=== PATIENT | female | born 1955 | race Caucasian/White ===

== ENCOUNTER → 2017-09-07 | Outpatient (CLI) | payer BC ==
[~2017-09-07] MED LIST: ALBU8.5H IH; ASPI81TA94 PO; CALC-634 PO; CALCIUM; EZET1TAB81 PO; FLU45SYR17 IM; FLU45SYR25 IM ONLY; FLU60SYR30 IM ONLY; LOSA-51 PO; METF-410 PO; METF10002 PO; METXR500 PO; MULTIPLE VITAMIN PO; NYST15CR32 TP; OLME1TAB49 PO; OMEG-11 PO; PRED20TA6 PO; ROSU5TAB18 PO; SERT-184 PO; SIMV-54 PO; VITAMIN D; ZOST19404 IM; ZOST19404 SQ; [UNRECOGNIZED DRUG - CODE] MC
[2017-09-07 10:20] LABS: PLATELET COUNT, AUTOMATED 204 K/uL (150-450)
[2017-09-07 10:40] LABS: LDL CHOLESTEROL 186 mg/dl
== END ==
LOC: LAB 10:05
PROVIDERS: ATTEND Nurse Practitioner Family
DX: I10 Essential (primary) hypertension (principal); E11.9 Type 2 diabetes mellitus without complications; E78.5 Hyperlipidemia, unspecified
CPT/HCPCS: 36415; 82040; 82247; 82310; 82374; 82435; 82465; 82565; 82947; 83036; 83718; 84075; 84132; 84155; 84295; 84450; 84460; 84478; 84520; 85025

== ENCOUNTER 2017-09-29 15:41 | Emergency (ER) | payer BC ==
[2017-09-29] MEDS ORDERED: METF-410 PO (15:57)
[2017-09-29] MEDS ORDERED: IOPAMIDOL 76% 75 ML INFUS BTL 75 ML ONE (16:58)
[2017-09-29] MEDS ORDERED: NS 0.9% 150 ML BAG 150 ML ONE (16:58)
[2017-09-29] MEDS ORDERED: KETOROLAC 30 MG/ML VIAL IVP ONE (17:35)
[2017-09-29] MEDS ORDERED: METOCLOPRAMIDE 10 MG/2 ML SDV IVP ONE (17:35)
--- NOTE | 2017-09-29 17:58 | RADIOLOGY IMAGING REPORT ---
FACILITY[place] [facility] [place]IENT NAME: Mariam Moreland : 1955 MR: [id number] V: [id number] EXAM DATE: [id number] ORDERING PHYSICIAN: MALORIE PAREDES TECHNOLOGIST: Location: [facility] - [place] Patient: Mariam Moreland : 1955 Visit/Account:[id number] Date of Sevice: 09/29/2017 CT angiogram chest with contrast Indication: Shortness of breath. Elevated d-dimer. Comparison: None available. Technique: Axial CT images are obtained through the chest after administration of 75 mL Isovue 370 IV contrast. Reformatted coronal and sagittal images were reviewed as well as coronal MIP images. One of the following dose optimization techniques was utilized in the performance of this exam: auto mated exposure control; adjustment of the mA and/or kV according to the patient's size; or use of an iterative reconstruction technique. Specific details can be referenced in the facility's radiology C T exam operational policy. FINDINGS: No evidence of filling defect within the pulmonary vasculature to suggest pulmonary embolus. Heart is upper limits normal for size. No pericardial effusion. The aorta shows no aneurysm or dissec tion. The mediastinum and hilar regions show no enlarged lymph nodes or abnormal density. Lungs show mild bibasilar atelectasis. No consolidation, pleural effusion or pneumothorax. No discret e nodule or focal interstitial opacity. Airways are clear. Bony structures show no acute fracture or discrete lesions. Chest wall shows no enlarged axillary lym ph nodes or masses. Limited views of the upper abdomen are unremarkable. IMPRESSION: 1. No evidence of pulmonary embolus. 2. Mild bibasilar atelectasis. No focal infiltrate. Report Dictated By: Luis Antonio Cali at 09/29/2017 5:47 PM Report E-Signed By: Luis Antonio Cali at 09/29/2017 5:54 PM WSN:[id number]
[2017-09-29 18:30] VITALS: BP 101/65
--- NOTE | 2017-09-29 19:15 | ER Report ---
History and Physical Time Seen By MD: 16:00 Hx. of Stated Complaint: pt has had low sats, feve rnon productive cough . SEnt from clinic, after having an elevated d dimer. HPI/ROS This is a 61-year-old female who was sent to the emergency department from the outpatient clinic for a CTA of the chest to evaluate for PE. The patient states she has had a nonproductive cough and subjective fever chills for the past week. She is on home oxygen that she only wears at night. She denies any chest pain. So states that she has a headache from coughing. She took a flight from [place] to [place] and back approximately one month ago. No other PE risk factors. Remainder of the 14 system rev: Yes Allergies: Coded Allergies: codeine (Verified Allergy, Mild, N&V, 09/29/17) propoxyphene (Unverified Allergy, Unknown, 09/29/17) Uncoded Allergies: diphtheria Toxin Preparations (Allergy, Unknown, 01/12/14) Home Meds Active Scripts Rosuvastatin Calcium (Rosuvastatin Calcium) 5 Mg Tablet, 0.5 TAB PO QHS, #45 TAB 0 Refills Prov:LAN LEVINE APRN-C 09/10/17 Sertraline Hcl (SERTRALINE HCL) 50 Mg Tablet, 1 TAB PO QDAY, #90 TAB 1 Refill Prov:LAN LEVINE APRN-C 04/06/17 Losartan/Hydrochlorothiazide (LOSARTAN-HCTZ 50-12.5 MG TAB) 1 Each Tablet, 1 EACH PO QDAY, #90 TAB 2 Refills Prov:LAN LEVINE APRN-C 07/01/16 NYSTATIN 632038 UNT/ML Topical Cream (NYSTATIN 624404 UNT/ML Topical Cream) 15 Gm Cream..g., 1 MEREDITH TP TID, #60 GM 2 Refills Prov:LAN LEVINE APRN-C 08/20/15 Reported Medications Metformin Hcl (METFORMIN HCL) 500 Mg Tablet, 1 TAB PO QDAY, TAB 09/29/17 Calcium Carbonate/Vitamin D3 (CALCIUM 600 + VIT D 400 TABLET) 1 Each Tablet, 1 EACH PO 08/18/14 [place]-3 Fatty Acids/Fish Oil (FISH OIL 1,000 MG CAPSULE) 1 Each Capsule, 1 EACH PO, CAPSULE 01/12/14 [Multiple Vitamin] No Conflict Check, PO QDAY 01/24/08 Discontinued Reported Medications Aspirin (ASPIRIN) 81 Mg Tab.chew, 81 MG PO QDAY, TAB.CHEW TAKE 1 TABLET BY MOUTH EVERY DAY 01/12/14 Discontinued Scripts Blood Sugar Diagnostic (ONE TOUCH ULTRA TEST STRIPS) 1 Each Strip, 1 EACH MC DAILY, #100 STRIP 3 Refills Prov:LAN LEVINE APRN RN [facility]-C 09/22/17 Metformin Hcl (METFORMIN HCL) 500 Mg Tablet, 1-2 TAB PO BID, #360 TAB 3 Refills 1 tab every morning and 2 tabs every evening Prov:LAN LEVINE APRN RN [facility]ARY-C 02/06/17 Zoster Vaccine Live/Pf (Zostavax Vial) 19,400 Unit/0.65 Ml Vial, 0.65 ML IM ONCE , #1 VIAL 0 Refills Prov:LAN LEVINE APRNP-C 11/06/16 Blood-Glucose Meter (ONE TOUCH ULTRAMINI) 1 Each Kit, 1 EACH MC, #1 Use to check blood sugars once daily Prov:LAN LEVINE APRN RN [facility]-C 09/17/15 Reviewed Nurses Notes: Yes Old Medical Records Reviewed: Yes Smoking Status: Never Smoker Hx Substance Use Disorder: No Hx Alcohol Use: Yes (rare) Constitutional Vital Sign - Last 24 Hours 09/29/17 09/29/17 09/29/17 09/29/17 15:46 15:51 16:04 16:11 Temp 100.1 Pulse 77 72 Resp 20 31 B/P (MAP) 135/83 135/83 (100) Pulse Ox 92 93 O2 Delivery Room Air O2 Flow Rate 2.0 09/29/17 16:41 Resp 21 Pulse Ox 91 Physical Exam General Appearance: The patient is alert, has no immediate need for airway protection and no current signs of toxicity. Eyes: Pupils equal and round no injection. Respiratory: Chest is non tender, lungs are clear to auscultation. Cardiac: regular rate and rhythm Gastrointestinal: Abdomen is soft and non tender, no masses, bowel sounds normal. Skin: No rashes or lesions. DIFFERENTIAL DIAGNOSIS: After history and physical exam differential diagnosis was considered for shortness of breath including but not limited to pulmonary infectious process, COPD, asthma, pulmonary embolus and congestive heart failure. Medical Decision Making EKG/Imaging Imaging Results: CTA scan of the chest was obtained. The results of the study are no PE, no infiltrate, no pulmonary edema. The study was read by the radiologist. I viewed the images myself on the PACS system. ED Course/Re-evaluation ED Course This is a 61-year-old female with a cough and subjective fevers for the past week who was sent to the emergency department from the outpatient clinic for a CTA of the chest to rule out a PE. She has no PE, infiltrate, or pulmonary edema on her CT scan of the chest. She is hypoxic into the mid 80s with ambulation however. I think she is suffering from a viral bronchitis. She already has home oxygen that she wears at night so I counseled her to also with her oxygen at 2 L during the day until her symptoms are resolved. I counseled her to call the outpatient clinic tomorrow and schedule a follow-up appointment Decision to Disposition Date: Sep 29, 2017 Decision to Disposition Time: 19:12 Depart Departure Latest Vital Signs Vital Signs Date Time Temp Pulse Resp B/P (MAP) Pulse Ox O2 Delivery O2 Flow Rate FiO2 09/29/17 16:41 21 91 09/29/17 16:11 72 09/29/17 16:04 2.0 09/29/17 15:51 135/83 (100) 09/29/17 15:46 100.1 Room Air Impression: Primary Impression: Hypoxia Additional Impression: Viral upper respiratory illness Condition: Improved Disposition: HOME OR SELF-CARE Referrals: LAN LEVINE APRN RN [facility]-C (PCP) Patient Instructions: Upper Respiratory Infection (ED) Additional Instructions: Start using her oxygen during the day at 2 L nasal cannula until your symptoms are improved. Follow-up with Carlton [facility] tomorrow please Problem Qualifiers MALORIE PAREDES MD Sep 29, 2017 19:15
== END 2017-09-29 19:32 | disposition home or self-care (01) ==
LOC: ER 15:56
DX: R09.02 Hypoxemia (principal); J06.9 Acute upper respiratory infection, unspecified
CPT/HCPCS: 71275; 96374; 96375; 99284; J1885; J2765; Q9967

== ENCOUNTER → 2017-09-29 | Outpatient (CLI) | payer BC ==
[~2017-09-29] MED LIST changes: +BLOO-1318 MC
[2017-09-29 14:44] LABS: PLATELET COUNT, AUTOMATED 145 K/uL (150-450)
--- NOTE | 2017-09-29 15:11 | RADIOLOGY IMAGING REPORT ---
FACILITY: [facility] - [place] PATIENT NAME: Mariam Moreland : 1955 MR: [id number] V: [id number] EXAM DATE: ORDERING PHYSICIAN: JESSIE CHAPMAN TECHNOLOGIST: Location: [facility] - [place] Patient: Mariam Moreland : 1955 Visit/Account:[id number] Date of Sevice: 09/29/2017 2 VIEWS CHEST INDICATION: Shortness of breath for one month, worsening. COMPARISON: None available FINDINGS: Cardiomediastinal silhouette and pulmonary vessels within normal limits. There is no focal infiltrate or lobar consolidation. There is no pneumothorax or pleural effusion. No nodule. Upper abdomen is unremarkable. No acute bony abnormality. IMPRESSION: 1. No acute cardiopulmonary process. Report Dictated By: Luis Antonio Cali at 09/29/2017 3:05 PM Report E-Signed By: Luis Antonio Cali at 09/29/2017 3:07 PM WSN:[id number]
== END ==
LOC: LAB 14:00
PROVIDERS: ATTEND Nurse Practitioner Primary Care
DX: R06.02 Shortness of breath (principal); M54.5 Low back pain
CPT/HCPCS: 36415; 71046; 81001; 82040; 82247; 82310; 82374; 82435; 82565; 82947; 84075; 84132; 84155; 84295; 84450; 84460; 84520; 85025; 85379

== ENCOUNTER → 2017-09-30 | Outpatient (CLI) | payer BC | LOC: LAB 11:12 | PROVIDERS: ATTEND Nurse Practitioner Primary Care | DX: R09.02 Hypoxemia (principal) | CPT/HCPCS: 87631 ==

== ENCOUNTER → 2017-10-12 | Outpatient (CLI) | payer BC ==
--- NOTE | 2017-10-12 16:54 | RADIOLOGY IMAGING REPORT ---
FACILITY: [facility] - [place] PATIENT NAME: Mariam Moreland : 1955 MR: [id number] V: [id number] EXAM DATE: ORDERING PHYSICIAN: LAN LEVINE TECHNOLOGIST: Location: [facility] - [place] Patient: Mariam Moreland : 1955 Visit/Account:[id number] Date of Sevice: 10/12/2017 Exam type: CHEST PA AND LAT History: hypoxia - worsening Comparison: September 29, 2017. Findings: There is a small amount of platelike atelectasis in the lower lobes. There is no evidence of focal i nfiltrates, pleural effusions or pulmonary edema. No evidence of a pneumothorax or pneumomediastinum . Cardiac size is normal in size. There has been surgical resection of the distal right clavicle. IMPRESSION: 1. Small amount of platelike atelectasis is seen in the lung bases Report Dictated By: Deya Arboleda MD at 10/12/2017 4:49 PM Report E-Signed By: Deya Arboleda MD at 10/12/2017 4:50 PM WSN:[id number]
== END ==
LOC: RAD 16:12
PROVIDERS: ATTEND Nurse Practitioner Family
DX: R09.02 Hypoxemia (principal)
CPT/HCPCS: 71046

== ENCOUNTER → 2017-12-11 | Outpatient (CLI) | payer BC ==
[~2017-12-11] MED LIST changes: -METF-410 PO; +METF-411 PO; +OFLO5DRO45 OS
[2017-12-11 09:48] LABS: PLATELET COUNT, AUTOMATED 184 K/uL (150-450)
[2017-12-11 10:12] LABS: LDL CHOLESTEROL 104 mg/dl
== END ==
LOC: LAB 09:30
PROVIDERS: ATTEND Nurse Practitioner Family
DX: I10 Essential (primary) hypertension (principal); E78.5 Hyperlipidemia, unspecified; E11.9 Type 2 diabetes mellitus without complications; R94.5 Abnormal results of liver function studies
CPT/HCPCS: 36415; 82040; 82247; 82310; 82374; 82435; 82465; 82565; 82947; 83036; 83718; 84075; 84132; 84155; 84295; 84443; 84450; 84460; 84478; 84520; 85025

== ENCOUNTER → 2018-02-11 | Outpatient (CLI) | payer BC ==
[~2018-02-11] MED LIST changes: +PNEI IM; -ROSU5TAB18 PO; +ROSU5TAB3 PO
--- NOTE | 2018-02-12 11:46 | RADIOLOGY IMAGING REPORT ---
FACILITY: [facility] - [place] PATIENT NAME: OMAIRA HAN : [id number] MR: [id number] V: [id number] EXAM DATE: [id number] ORDERING PHYSICIAN: LAN LEVINE TECHNOLOGIST: Eliza Harper PROCEDURE:BILATERAL DIGITAL SCREENING MAMMOGRAM WITH CAD ASSISTED INTERPRETATION & 3D TOMOSYNTHESIS COMPARISON:Prior mammograms 11/13/16, 08/10/15. INDICATIONS:SCREENING FINDINGS: There is scattered fibroglandular tissue. No significant microcalcification, mass or architectural distortion. No change compared to prior. DIAGNOSTIC CATEGORY 1--NEGATIVE. RECOMMENDATIONS: ROUTINE MAMMOGRAM AND CLINICAL EVALUATION. IMPRESSION: BIRADS 1: Negative. Normal exam. Dictated by: Javier Peralta on 02/12/2018 at 9:50 Transcribed by: ROMAINE on 02/12/2018 at 10:01 Approved by: Javier Peralta on 02/12/2018 at 11:45 [facility]
== END ==
LOC: MAMO 02:00
PROVIDERS: ATTEND Nurse Practitioner Family
DX: Z12.31 Encounter for screening mammogram for malignant neoplasm of breast (principal)
CPT/HCPCS: 77063; 77067

== ENCOUNTER 2018-03-31 00:02 | Day surgery (SDC) | payer BC ==
[~2018-03-31] VITALS: Ht 154.9 cm; Wt 78.5 kg
[~2018-03-31 00:02] MED LIST changes: -METF-411 PO; +METF-450 PO
[2018-03-31 06:21] VITALS: BP 133/92
[2018-03-31] MEDS ORDERED: NORMOSOL R SOLN(*) 1000 ML BAG 1,000 ML IV PRN (06:30)
[2018-03-31] MEDS ORDERED: LIDOCAINE/SOD BICARB 8.4% SYR ID ONE (06:30)
[2018-03-31] MEDS ORDERED: PROPOFOL EMUL(*) 10MG/ML 20 ML 20 ML ONE ×2 (07:05→07:54)
[2018-03-31 08:14] VITALS: BP 104/61
--- NOTE | 2018-03-31 08:27 | Short(Outpt) Discharge Summary ---
Discharge Summary Reason for Hosp/Final Diag: (1) Colon cancer screening Status: Chronic Hospital Course & Plan: Colonoscopy with polypectomy x5, including large rectal polyp, completed without problems. Departure Discharge to: Home, Self Care Discharge Instructions Home Meds Active Scripts Sertraline Hcl (SERTRALINE HCL) 50 Mg Tablet, 1 TAB PO QDAY, #90 TAB 1 Refill Prov:LAN LEVINE APRNP-C 01/28/18 Metformin Hcl (METFORMIN HCL) 500 Mg Tablet, 1 TAB PO QDAY, #90 TAB 1 Refill Prov:LAN LEVINE APRNP-C 01/28/18 Losartan/Hydrochlorothiazide (LOSARTAN-HCTZ 50-12.5 MG TAB) 1 Each Tablet, 1 EACH PO QDAY, #90 TAB 0 Refills Prov:LAN LEVINE APRNP-C 01/05/18 Reported Medications Calcium Carbonate/Vitamin D3 (CALCIUM 600 + VIT D 400 TABLET) 1 Each Tablet, 1 EACH PO 08/18/14 [Multiple Vitamin] No Conflict Check, PO QDAY 01/24/08 Diet: Regular Activity: As Tolerated Special Instructions: Your colonoscopy was completed without problems and your prep was excellent (Good Job!!). I removed 4 small polyps and 1 large polyps from your colon and rectum and they were all sent to pathology. My office will call you in the next week or 2 and let you know what the polyps are but, in any case, because of the large polyp, I am going to recommend that your next colonoscopy be completed in no more than 1 year so I can be sure the polyp is not growing back. If everything looks good/normal at that time with no further polyps then you will need colonoscopies every 5 years thereafter. BEE DEL VALLE MD Mar 31, 2018 08:27
[2018-03-31 08:30] VITALS: BP 102/50
[2018-03-31 08:54] VITALS: BP 129/72
[2018-03-31 08:56] VITALS: BP 134/85
== END 2018-03-31 09:09 | disposition home or self-care (01) ==
LOC: OR 00:02
PROVIDERS: ATTEND Surgery
DX: Z12.11 Encounter for screening for malignant neoplasm of colon (principal); D12.5 Benign neoplasm of sigmoid colon; K63.5 Polyp of colon; E11.9 Type 2 diabetes mellitus without complications
CPT/HCPCS: 00811; 36416; 45385; 82948; 88305; J2704

== ENCOUNTER → 2018-05-14 | Outpatient (CLI) | payer BC ==
[2018-05-14 10:42] LABS: LDL CHOLESTEROL 115 mg/dl
== END ==
LOC: LAB 10:05
PROVIDERS: ATTEND Nurse Practitioner Family
DX: E78.5 Hyperlipidemia, unspecified (principal); E11.9 Type 2 diabetes mellitus without complications; R79.89 Other specified abnormal findings of blood chemistry; I10 Essential (primary) hypertension
CPT/HCPCS: 36415; 82040; 82247; 82310; 82374; 82435; 82465; 82565; 82947; 83036; 83718; 84075; 84132; 84155; 84295; 84450; 84460; 84478; 84520

== ENCOUNTER → 2018-09-28 | Outpatient (CLI) | payer BC ==
[2018-09-28 10:37] LABS: LDL CHOLESTEROL 177 mg/dl
== END ==
LOC: LAB 09:58
PROVIDERS: ATTEND Nurse Practitioner Family
DX: R79.89 Other specified abnormal findings of blood chemistry (principal); E78.5 Hyperlipidemia, unspecified; I10 Essential (primary) hypertension; E11.9 Type 2 diabetes mellitus without complications
CPT/HCPCS: 36415; 82040; 82247; 82310; 82374; 82435; 82465; 82565; 82947; 83036; 83718; 84075; 84132; 84155; 84295; 84450; 84460; 84478; 84520